=== PATIENT | female | born 1955 | race Caucasian/White ===

== ENCOUNTER 2016-06-28 13:52 | Outpatient (CLI) | payer OTHER | END 2016-06-28 13:53 | disposition home or self-care (01) | DX: Z12.31 Encounter for screening mammogram for malignant neoplasm of breast (principal); Z80.3 Family history of malignant neoplasm of breast ==

== ENCOUNTER 2016-10-13 12:41 | Outpatient (CLI) | payer OTHER | END 2016-10-13 12:42 | disposition home or self-care (01) | DX: R23.3 Spontaneous ecchymoses (principal) ==

== ENCOUNTER 2017-09-10 16:10 | Outpatient (CLI) | payer BC, OTHER ==
--- NOTE | 2017-09-11 17:36 | Mammography Report ---
DIGITAL SCREENING MAMMOGRAM: 09/10/2017 CLINICAL INDICATION: A 61-year-old with personal history of benign biopsy for screening. COMPARISON: 06/2016, 03/2015, 04/2014, 09/2013, 08/2012, 10/2011, 06/2011, 05/2010. TECHNIQUE: Routine CC and MLO projections were obtained of the breasts. FINDINGS: The breasts again demonstrate scattered fibroglandular densities bilaterally. Postbiopsy changes in the left retroareolar breast are stable. A few punctate, typically benign calcifications are present. No suspicious masses, clustered microcalcifications, or regions of architectural distortion are identified. IMPRESSION: BENIGN FINDINGS. RECOMMENDATION: Routine annual screening unless otherwise clinically indicated. BIRADS category 2 benign findings. STANDARD QUALIFYING STATEMENTS 1. This examination was reviewed with the aid of Computed-Aided Detection (CAD). 2. A negative or benign imaging report should not delay biopsy if clinically suspicious findings are present. Consider surgical consultation if warranted. More than 5% of cancers are not identified by imaging. 3. Dense breasts may obscure an underlying neoplasm. TD: 09/11/2017 17:35
== END 2017-09-10 16:11 | disposition home or self-care (01) ==
LOC: DI 16:10
PROVIDERS: ATTEND Family Medicine
DX: Z12.31 Encounter for screening mammogram for malignant neoplasm of breast (principal)
CPT/HCPCS: 77067

== ENCOUNTER 2018-08-06 14:26 | Outpatient (CLI) | payer BC, OTHER ==
--- NOTE | 2018-08-06 14:52 | XRAY Report ---
Reason: ALLERGIC ASTHMA Procedure Date: 08/06/2018 Accession Number: [id number] / [id number] Procedure: WCP - Chest 2 View X-Ray CPT Code: 00457 FULL RESULT: EXAM: CHEST RADIOGRAPHY EXAM DATE: 08/06/2018 02:42 PM. CLINICAL HISTORY: ALLERGIC ASTHMA. Cough, shortness of breath. COMPARISON: CHEST 2 VIEW PA/LAT 06/06/2017 12:23 PM. TECHNIQUE: 2 views. FINDINGS: Lungs/Pleura: No focal opacities evident. No peribronchial cuffing or interstitial abnormality. No pleural effusion. No pneumothorax. Normal volumes. Mediastinum: Heart size normal. Mildly prominent right cardiophrenic angle fat pad, as before. Other: None. IMPRESSION: Normal 2-view chest radiography. RADIA
== END 2018-08-06 14:27 | disposition home or self-care (01) ==
LOC: DI.WCP 14:26
PROVIDERS: ATTEND Family Medicine
DX: J45.909 Unspecified asthma, uncomplicated (principal)
CPT/HCPCS: 71046

== ENCOUNTER 2018-12-11 16:11 | Outpatient (CLI) | payer BC, OTHER ==
--- NOTE | 2018-12-12 08:23 | Mammography Report ---
Reason: SCREENING MAMMO Procedure Date: 12/11/2018 Accession Number: [id number] / [id number] Procedure: NIKKIE - Screening Mammo w/Jonatan CPT Code: FULL RESULT: EXAM: Screening Mammo w/Jonatan DATE: 12/11/2018 4:47 PM CLINICAL HISTORY: Screening encounter. History of early menses. History of left breast excisional biopsy with benign pathology. TECHNIQUE: (B) - Bilateral CC and MLO views were obtained. COMPARISON: 09/10/2017 through 09/24/2013. PARENCHYMAL PATTERN: (A) - The breast(s) demonstrate(s) scattered fibroglandular densities. FINDINGS: Stable postsurgical changes in the left breast. There are no suspicious masses, calcifications, or areas of distortion. IMPRESSION: Benign findings. BI-RADS category 2. RECOMMENDATION: (ANNUAL) - Recommend routine annual screening mammography. BI-RADS CATEGORY: (2) - Benign Findings. STANDARD QUALIFYING STATEMENTS: 1. This examination was not reviewed with the aid of Computer-Aided Detection (CAD). 2. A negative or benign imaging report should not preclude biopsy if clinically suspicious findings are present. 3. Dense breasts may obscure an underlying neoplasm. 4. This examination was reviewed with the aid of 3D breast imaging (tomosynthesis).
== END 2018-12-11 16:12 | disposition home or self-care (01) ==
LOC: DI 16:11
DX: Z12.31 Encounter for screening mammogram for malignant neoplasm of breast (principal)
CPT/HCPCS: 77063; 77067

== ENCOUNTER 2019-01-10 15:14 | Outpatient (CLI) | payer BC, OTHER ==
[2019-01-10 18:43] LABS: BASOPHILS # (AUTO) 0.1 10^3/uL (0.0-0.1); BASOPHILS % (AUTO) 0.9 %; EOSINOPHILS # (AUTO) 0.2 10^3/uL (0.0-0.7); EOSINOPHILS % (AUTO) 1.6 %; HGB - HEMOGLOBIN 13.2 g/dL (12.0-16.0); LYMPHOCYTES # (AUTO) 2.6 10^3/uL (1.5-3.5); LYMPHOCYTES % (AUTO) 28.5 %; MEAN CORPUSCULAR HEMOGLOBIN 30.3 pg (27.0-31.0); MEAN CORPUSCULAR VOLUME 94.9 fL (81.0-99.0); MEAN PLATELET VOLUME 11.4 fL (7.9-10.8); MONOCYTES % (AUTO) 10.9 %; NEUTROPHILS # (AUTO) 5.3 10^3/uL (1.5-6.6); NEUTROPHILS % (AUTO) 57.7 %; PLT - PLATELET COUNT 348 10^3/uL (130-450); RED BLOOD COUNT 4.35 10^6/uL (4.20-5.40); RED CELL DISTRIBUTION WIDTH 12.8 % (12.0-15.0); WHITE BLOOD COUNT 9.2 x10^3/uL (4.8-10.8)
[2019-01-10 19:12] LABS: HB2 TOTAL 13.9 g/dL; HEMOGLOBIN A1C 0.53 g/dL; HEMOGLOBIN A1C % 5.6 % (4.6-6.2)
[2019-01-10 19:19] LABS: ALBUMIN/GLOBULIN RATIO 1.2 (1.0-2.2); ALKALINE PHOSPHATASE 65 IU/L (42-121); ALT ALANINE AMINOTRANSFERASE 15 IU/L (10-60); AST ASPARTATE AMINOTRANSFERASE 17 IU/L (10-42); BILIRUBIN,TOTAL 0.8 mg/dL (0.2-1.0); BUN - BLOOD UREA NITROGEN 14 mg/dL (6-20); CALCIUM 9.8 mg/dL (8.5-10.3); CARBON DIOXIDE - CO2 27 mmol/L (21-32); CHLORIDE 105 mmol/L (101-111); CHOL/HDL RATIO 3.6 (<4.4); CHOLESTEROL 207 mg/dL; CREATININE 0.9 mg/dL (0.4-1.0); GFR - MDRD 64 (>89); GLUCOSE 91 mg/dL (70-100); HDL CHOLESTEROL 58 mg/dL; LDL CHOLESTEROL,CALCULATED 132 mg/dL; LDL/HDL RATIO 2.3 (<4.4); SODIUM 140 mmol/L (135-145); TOTAL PROTEIN 7.3 g/dL (6.7-8.2); VLDL CHOLESTEROL 17 mg/dL
== END 2019-01-10 23:59 | disposition home or self-care (01) ==
LOC: LAB.WCP 15:14
PROVIDERS: ATTEND Family Medicine
DX: Z00.00 Encounter for general adult medical examination without abnormal findings (principal); R03.0 Elevated blood-pressure reading, without diagnosis of hypertension; E78.5 Hyperlipidemia, unspecified
CPT/HCPCS: 36415; 80053; 80061; 83036; 83721; 84443; 85025

== ENCOUNTER 2019-01-29 11:06 | Outpatient (CLI) | payer BC, OTHER ==
--- NOTE | 2019-01-31 01:07 | XRAY Report ---
Reason: LEFT HEEL PAIN Procedure Date: 01/29/2019 Accession Number: [id number] / [id number] Procedure: WCP - Foot 2 View LT CPT Code: FULL RESULT: EXAM: LEFT FOOT RADIOGRAPHY EXAM DATE: 01/29/2019 11:06 AM. CLINICAL HISTORY: LEFT HEEL PAIN. COMPARISON: None. TECHNIQUE: 2 views. FINDINGS: Bones: Small plantar calcaneal spur. No evidence of fracture. Joints: Normal. No subluxations. Soft Tissues: Normal. No soft tissue swelling. IMPRESSION: Small plantar calcaneal spur. RADIA
== END 2019-01-29 23:59 | disposition home or self-care (01) ==
LOC: DI.WCP 11:06
PROVIDERS: ATTEND Family Medicine
DX: M77.32 Calcaneal spur, left foot (principal)

== ENCOUNTER 2019-05-04 10:07 | Emergency (ER) | payer BC, OTHER ==
--- NOTE | 2019-05-04 11:18 | ED Physician Documentation ---
PD HPI OPHTHO - Stated complaint Stated Complaint: LT EYE FOREIGN BODY - Chief complaint Chief Complaint: Heent - History obtained from History obtained from: Patient - History of Present Illness Timing - onset: Yesterday Timing - duration: Hours Timing - details: Abrupt onset Location: Left Associated symptoms: FB sensation. No: Redness Contributing factors: Wears contacts Recently seen: Not recently seen - Additional information Additional information: This is a 63-year-old woman who was taking her contact out of her left eye last night when it tore. She thinks the other piece is still in there and try to remove it at home but could not get it out she stood in the shower and let the water run in the eye. It still irritated today and has a foreign body sensation so she presents to get it removed. Review of Systems Eyes: reports: Irritation, Other (Foreign body sensation in the left eye). denies: Loss of vision PD PAST MEDICAL HISTORY - Present Medications Home Medications: Ambulatory Orders Medication Instructions Recorded Confirmed Erythromycin Base [Erythromycin 3.5 gm OP BID #1 tube 05/04/19 Ophthalmic Ointment] - Allergies Allergies/Adverse Reactions: Allergies Allergy/AdvReac Type Severity Reaction Status Date / Time No Known Drug Allergies Allergy Verified 05/04/19 10:45 PD ED PE NORMAL - Vitals Vital signs reviewed: Yes - General General: Alert and oriented X 3, No acute distress, Well developed/nourished - HEENT HEENT: Atraumatic, PERRL, EOMI, Other (Left eye was numbed with tetracaine. Evaluation did not reveal any obvious foreign body. The upper lid was everted and a cotton tipped applicator moistened was used to sweep underneath into the fornix without retrieval of any foreign body. The eye was irrigated with saline underneath the upper lid. The put the patient on an ophthalmic ointment just to soothe it and have her follow-up if not improving. I suspect this got flushed out in the shower and she was unaware that it came out. There was no corneal abrasion on fluorescein staining.) Results - Vitals Vitals: Vital Signs - 24 hr 05/04/19 05/04/19 10:43 12:26 Temperature 36.8 C Heart Rate 94 84 Respiratory 16 16 Rate Blood Pressure 139/70 H 132/75 H O2 Saturation 98 99 Oxygen O2 Source Room air PD MEDICAL DECISION MAKING - ED course Complexity details: d/w patient, d/w family ED course: No foreign body was identified. She may wash it out in the shower and not realized it. Her was looking with me and he did not see anything either. We did irrigate underneath the upper eyelid and the patient will be placed on erythromycin ophthalmic ointment just to soothe the eye. Departure - Departure Disposition: 01 Home, Self Care Clinical Impression: Sensation of foreign body in eye Condition: Good Instructions: ED Eye Particle Conjunctiva FB Rslv Follow-Up: Irene Bullard DO [Primary Care Provider] - Prescriptions: Erythromycin Base [Erythromycin Ophthalmic Ointment] 3.5 gm OP BID #1 tube Comments: Use the erythromycin ophthalmic ointment twice a day for the next 2 to 3 days just to help soothe the eye. Would not use another contact until you feel like the eye is 100% improved. Follow-up if you continue to feel like there is a foreign body in the eye. Discharge Date/Time: 05/04/19 12:27
[2019-05-04 12:28] VITALS: BP 132/75
== END 2019-05-04 12:27 | disposition home or self-care (01) ==
LOC: ED 10:07
DX: H57.89 Other specified disorders of eye and adnexa (principal)
CPT/HCPCS: 99282; 99283

== ENCOUNTER 2019-06-26 08:46 | Outpatient (CLI) | payer OTHER | END 2019-06-26 23:59 | disposition home or self-care (01) | LOC: LAB.R 08:46 | PROVIDERS: ATTEND Family Medicine | DX: R31.9 Hematuria, unspecified (principal) | CPT/HCPCS: 87086 ==

== ENCOUNTER 2019-07-02 16:13 | Outpatient (CLI) | payer OTHER ==
--- NOTE | 2019-07-03 10:03 | Ultrasound Report ---
Reason: POSTMENOPAUSAL BLEEDING Procedure Date: 07/02/2019 Accession Number: [id number] / [id number] Procedure: US - Pelvic w/Transvaginal CPT Code: Final Report FULL RESULT: EXAM: PELVIC ULTRASOUND EXAM DATE: 07/02/2019 05:23 PM. CLINICAL HISTORY: Postmenopausal bleeding. COMPARISON: [facility] 12/15/2013 3:10 PM. TECHNIQUE: Realtime transabdominal pelvic scan performed to identify the uterus and adnexa and as an overview of other pelvic structures, followed by transvaginal scan to provide greater detail of the uterus and adnexa, with static image documentation. FINDINGS: Uterus: 7.9 x 3.3 x 4.7 cm, volume 63.7 cc. Anteverted position. Normal overall size and echotexture. Masses: 1.5 x 2.1 x 2.3 cm anterior uterine subserosal fibroid. Previously measuring 1.2 x 0.9 x 0.8 cm. Endometrium: 6 mm. No abnormal flow, endometrial mass or focal thickening. Cervix: Lobular fluid collection in the endocervix measuring 1.8 x 1 x 2 cm. This collection contains debris. No hypervascular components or definite solid mass. Right Ovary: 1.4 x 1.3 x 1.1 cm, volume 1.1 cc. Normal echotexture and blood flow. Left Ovary: 1.4 x 0.8 x 1.2 cm, volume 0.7 cc. Normal echotexture and blood flow. Free Fluid: None. Other: None. IMPRESSION: 1. Complex debris-containing avascular fluid in the endocervix. No definite vascular soft tissue mass. If symptoms persist, recommend direct visualization with pelvic exam/Pap smear. 2. 2 cm anterior uterine subserosal fibroid. Previously measuring 1.2 cm. 3. Endometrium measures up to 6 mm. No focal mass or polyp. RADIA
== END 2019-07-02 16:14 | disposition home or self-care (01) ==
LOC: DI 16:13
PROVIDERS: ATTEND Family Medicine
DX: D25.2 Subserosal leiomyoma of uterus (principal)
CPT/HCPCS: 76830; 76856

== ENCOUNTER 2020-01-02 08:00 | Outpatient (CLI) | payer OTHER ==
[2020-01-02 18:08] LABS: BASOPHILS # (AUTO) 0.1 10^3/uL (0.0-0.1); BASOPHILS % (AUTO) 0.7 %; EOSINOPHILS # (AUTO) 0.1 10^3/uL (0.0-0.7); EOSINOPHILS % (AUTO) 1.2 %; HGB - HEMOGLOBIN 12.8 g/dL (12.0-16.0); LYMPHOCYTES # (AUTO) 2.1 10^3/uL (1.5-3.5); LYMPHOCYTES % (AUTO) 24.8 %; MEAN CORPUSCULAR HEMOGLOBIN 29.9 pg (27.0-31.0); MEAN CORPUSCULAR VOLUME 96.5 fL (81.0-99.0); MEAN PLATELET VOLUME 11.6 fL (7.9-10.8); MONOCYTES # (AUTO) 0.8 10^3/uL (0.0-1.0); NEUTROPHILS # (AUTO) 5.2 10^3/uL (1.5-6.6); NEUTROPHILS % (AUTO) 62.8 %; PLT - PLATELET COUNT 324 10^3/uL (130-450); RED BLOOD COUNT 4.28 10^6/uL (4.20-5.40); RED CELL DISTRIBUTION WIDTH 12.8 % (12.0-15.0); WHITE BLOOD COUNT 8.3 x10^3/uL (4.8-10.8)
[2020-01-02 19:37] LABS: ALBUMIN 4.3 g/dL (3.2-5.5); ALBUMIN/GLOBULIN RATIO 1.6 (1.0-2.2); ALKALINE PHOSPHATASE 61 IU/L (42-121); ALT ALANINE AMINOTRANSFERASE 13 IU/L (10-60); AST ASPARTATE AMINOTRANSFERASE 17 IU/L (10-42); BILIRUBIN,TOTAL 0.7 mg/dL (0.2-1.0); BUN - BLOOD UREA NITROGEN 15 mg/dL (6-20); CALCIUM 9.2 mg/dL (8.5-10.3); CARBON DIOXIDE - CO2 27 mmol/L (21-32); CHLORIDE 105 mmol/L (101-111); CHOL/HDL RATIO 4.4 (<4.4); CHOLESTEROL 221 mg/dL; CREATININE 0.8 mg/dL (0.4-1.0); GLUCOSE 86 mg/dL (70-100); HDL CHOLESTEROL 50 mg/dL; LDL CHOLESTEROL,CALCULATED 152 mg/dL; SODIUM 139 mmol/L (135-145); VLDL CHOLESTEROL 19 mg/dL
== END 2020-01-02 23:59 | disposition home or self-care (01) ==
LOC: LAB.WCP 08:00
PROVIDERS: ATTEND Family Medicine
DX: Z00.00 Encounter for general adult medical examination without abnormal findings (principal); E78.5 Hyperlipidemia, unspecified
CPT/HCPCS: 36415; 80053; 80061; 83721; 84443; 85025

== ENCOUNTER 2020-02-17 08:18 | Outpatient (CLI) | payer OTHER ==
--- NOTE | 2020-02-18 12:38 | Mammography Report ---
BILATERAL DIGITAL SCREENING MAMMOGRAM 3D/2D: 02/17/2020 CLINICAL: Routine screening. Comparison is made to exams dated: 12/11/2018 mammogram, 09/10/2017 mammogram, 06/28/2016 mammogram, and 04/06/2015 mammogram - [facility]. There are scattered fibroglandular elements in both breasts. No significant masses, calcifications, or other findings are seen in either breast. There has been no significant interval change. IMPRESSION: NEGATIVE There is no mammographic evidence of malignancy. A 1 year screening mammogram is recommended. This exam was interpreted at Station ID: [id number]. NOTE: For mammograms, a report in lay terms will be sent to the patient. Approximately 15% of breast malignancies will not be visualized mammographically. In the management of a palpable breast mass, a negative mammogram must not discourage biopsy of a clinically suspicious lesion. Electronically Signed By: Reese culver/ericka:02/17/2020 10:08:31 ACR BI-RADS Category 1: Negative 3341F PARENCHYMAL PATTERN: (A) - The breast(s) demonstrate(s) scattered fibroglandular densities. BI-RADS CATEGORY: (1) - 1 RECOMMENDATION: (ANNUAL) - Recommend routine annual screening mammography. [id number] 1 year screening LATERALITY: (B)
== END 2020-02-17 08:19 | disposition home or self-care (01) ==
LOC: DI.N 08:18
DX: Z12.31 Encounter for screening mammogram for malignant neoplasm of breast (principal)
CPT/HCPCS: 77063; 77067

== ENCOUNTER 2020-12-29 08:00 | Outpatient (CLI) | payer OTHER ==
[2020-12-29 12:18] LABS: BASOPHILS # (AUTO) 0.1 10^3/uL (0.0-0.1); BASOPHILS % (AUTO) 0.8 %; EOSINOPHILS # (AUTO) 0.2 10^3/uL (0.0-0.7); EOSINOPHILS % (AUTO) 2.4 %; HCT - HEMATOCRIT 41.6 % (37.0-47.0); HGB - HEMOGLOBIN 12.9 g/dL (12.0-16.0); LYMPHOCYTES # (AUTO) 2.3 10^3/uL (1.5-3.5); LYMPHOCYTES % (AUTO) 30.3 %; MEAN CORPUSCULAR HEMOGLOBIN 29.6 pg (27.0-31.0); MEAN CORPUSCULAR VOLUME 95.4 fL (81.0-99.0); MEAN PLATELET VOLUME 11.3 fL (7.9-10.8); MONOCYTES # (AUTO) 0.9 10^3/uL (0.0-1.0); MONOCYTES % (AUTO) 11.9 %; NEUTROPHILS # (AUTO) 4.1 10^3/uL (1.5-6.6); NEUTROPHILS % (AUTO) 54.3 %; PLT - PLATELET COUNT 361 10^3/uL (130-450); RED BLOOD COUNT 4.36 10^6/uL (4.20-5.40); RED CELL DISTRIBUTION WIDTH 12.5 % (12.0-15.0); WHITE BLOOD COUNT 7.6 x10^3/uL (4.8-10.8)
[2020-12-29 12:29] LABS: ALBUMIN 3.9 g/dL (3.2-5.5); ALBUMIN/GLOBULIN RATIO 1.2 (1.0-2.2); ALKALINE PHOSPHATASE 64 IU/L (42-121); ALT ALANINE AMINOTRANSFERASE 15 IU/L (10-60); AST ASPARTATE AMINOTRANSFERASE 16 IU/L (10-42); BILIRUBIN,TOTAL 0.4 mg/dL (0.2-1.0); BUN - BLOOD UREA NITROGEN 16 mg/dL (6-20); CALCIUM 9.4 mg/dL (8.5-10.3); CARBON DIOXIDE - CO2 29 mmol/L (21-32); CHLORIDE 104 mmol/L (101-111); CHOL/HDL RATIO 3.7 (<4.4); CHOLESTEROL 197 mg/dL; CREATININE 0.8 mg/dL (0.4-1.0); GFR - MDRD 72 (>89); GLUCOSE 97 mg/dL (70-100); HDL CHOLESTEROL 53 mg/dL; LDL CHOLESTEROL,CALCULATED 126 mg/dL; LDL/HDL RATIO 2.4 (<4.4); POTASSIUM 4.4 mmol/L (3.5-5.0); SODIUM 141 mmol/L (135-145); TOTAL PROTEIN 7.2 g/dL (6.7-8.2); TRIGLYCERIDES 89 mg/dL; VLDL CHOLESTEROL 18 mg/dL
[2020-12-29 12:46] LABS: THYROID STIMULATING HORMONE 1.84 uIU/mL (0.34-5.60)
== END 2020-12-29 23:59 | disposition home or self-care (01) ==
LOC: LAB.WCP 08:00
PROVIDERS: ATTEND Family Medicine
DX: Z00.00 Encounter for general adult medical examination without abnormal findings (principal); E78.5 Hyperlipidemia, unspecified
CPT/HCPCS: 36415; 80053; 80061; 83721; 84443; 85025

== ENCOUNTER 2021-03-22 07:35 | Day surgery (SDC) | payer OTHER ==
[2021-03-22] MEDS ORDERED: LACTATED RINGERS 1,000 ML IV ONE (08:10)
--- NOTE | 2021-03-22 08:34 | ANESTHESIA ---
Pre-Anesthesia VS, & Labs - Diagnosis screening - Procedure colonoscopy Vital Signs: Temp Pulse Resp BP Pulse Ox 36.2 C L 81 16 141/82 H 100 03/22/21 08:03 03/22/21 08:03 03/22/21 08:03 03/22/21 08:03 03/22/21 08:03 Height: 5 ft 3 in Weight (kg): 99.9 kg Body Mass Index: 38.9 BMI Classification: Obese - NPO >8 hours - Is Patient ?: No - Lab Results Lab results reviewed: Yes Home Medications and Allergies Home Medications: Ambulatory Orders Albuterol 2 puffs INH PRN 03/22/21 Aspirin [Aspirin EC] 1 tab ORAL DAILY 03/22/21 Fluticasone 44 Mcg [Flovent] 2 puffs INH BID 03/22/21 Fluticasone [Flonase] 1 spray INH DAILY 03/22/21 Loratadine [Claritin] 10 mg ORAL DAILY 03/22/21 Montelukast [Singulair] 10 mg ORAL DAILY 03/22/21 busPIRone [Buspar] 15 mg ORAL BID 03/22/21 Albuterol 2 puffs INH PRN 03/22/21 Aspirin [Aspirin EC] 1 tab ORAL DAILY 03/22/21 Fluticasone 44 Mcg [Flovent] 2 puffs INH BID 03/22/21 Fluticasone [Flonase] 1 spray INH DAILY 03/22/21 Loratadine [Claritin] 10 mg ORAL DAILY 03/22/21 Montelukast [Singulair] 10 mg ORAL DAILY 03/22/21 busPIRone [Buspar] 15 mg ORAL BID 03/22/21 Allergies/Adverse Reactions: Allergies Allergy/AdvReac Type Severity Reaction Status Date / Time pollen,mold,grasses Allergy Unknown Uncoded 05/05/19 08:53 Anes History & Medical History - Anesthetic History Anesthesia Complications: reports: No previous complications Family history of Anesthesia Complications: Denies Family history of Malignant Hyperthermia: Denies - Medical History Cardiovascular: reports: Hypertension, Arrhythmia Pulmonary: reports: Asthma Gastrointestinal: reports: None Urinary: reports: None Musculoskeletal: reports: Osteoarthritis Endocrine/Autoimmune: reports: None Skin: reports: None Smoking Status: Never smoker - Surgical History General: reports: Colonoscopy Gynecologic: reports: section Exam General: Alert, Oriented x3, Cooperative, No acute distress Dental: WNL Mouth Openin Fingerbreadth Neck Mobility: Reduced Thyromental Distance: less than 4 cm Respiratory: Lungs clear, Normal breath sounds, No respiratory distress, No accessory muscle use Cardiovascular: Regular rate, Normal S1, Normal S2, No murmurs Plan Anesthesia Type: General, Total IV Consent for Procedure(s) Verified and Reviewed: Yes Code Status: Attempt Resuscitation ASA classification: 2-Mild systemic disease Is this case an emergency?: No
[2021-03-22] MEDS ORDERED: LACTATED RINGERS 300 ML IV ONE (09:20)
[2021-03-22] MEDS ORDERED: PROPOFOL 500 MG/50 ML 500 MG/50 ML VIAL ONE (09:36)
[2021-03-22 09:41] VITALS: BP 124/67
--- NOTE | 2021-03-22 10:26 | ANESTHESIA POST OP EVALUATION ---
Anesthesia Post Eval - Post Anesthesia Eval Vitals: Last Vital Signs Temp 36.2 C L 03/22/21 09:40 Pulse 78 03/22/21 09:40 Resp 14 03/22/21 09:40 BP 124/67 03/22/21 09:40 Pulse Ox 100 03/22/21 09:40 CV Function Including HR & BP: Stable Pain Control: Satisfactory Nausea & Vomiting: Negative Mental Status: Baseline Respiratory Status: Airway Patent Hydration Status: Satisfactory Anesthesia Complications: None
== END 2021-03-22 07:36 | disposition home or self-care (01) ==
LOC: SDS 07:35
PROVIDERS: ATTEND Surgery
DX: Z12.11 Encounter for screening for malignant neoplasm of colon (principal); K57.30 Diverticulosis of large intestine without perforation or abscess without bleeding; K64.4 Residual hemorrhoidal skin tags; K64.8 Other hemorrhoids; J45.909 Unspecified asthma, uncomplicated; F41.9 Anxiety disorder, unspecified; E66.9 Obesity, unspecified; Z68.38 Body mass index [BMI] 38.0-38.9, adult
CPT/HCPCS: 45378; J7120

== ENCOUNTER 2021-07-28 15:36 | Outpatient (CLI) | payer OTHER ==
--- NOTE | 2021-08-01 07:54 | Mammography Report ---
BILATERAL DIGITAL SCREENING MAMMOGRAM 3D/2D: 07/28/2021 CLINICAL: Routine screening. Comparison is made to exams dated: 02/17/2020 mammogram, 12/11/2018 mammogram, 09/10/2017 mammogram, 06/28/2016 mammogram, 04/06/2015 mammogram, and 05/18/2014 ultrasound - [facility]. Th ere are scattered fibroglandular elements in both breasts. No significant masses, calcifications, or other findings are seen in either breast. There has been no significant interval change. IMPRESSION: NEGATIVE There is no mammographic evidence of malignancy. A 1 year screening mammogram is recommended. This exam was interpreted at Station ID: [id number]. NOTE: For mammograms, a report in lay terms will be sent to the patient. Approximately 15% of breast malignancies will not be visualized mammographically. In the management of a palpable breast mass, a negative mammogram must not discourage biopsy of a clinically suspicious lesion. Electronically Signed By: Justyn Cody M.D., jr/ericka:07/29/2021 08:40:18 ACR BI-RADS Category 1: Negative 3341F PARENCHYMAL PATTERN: (A) - The breast(s) demonstrate(s) scattered fibroglandular densities. BI-RADS CATEGORY: (1) - 1 RECOMMENDATION: (ANNUAL) - Recommend routine annual screening mammography. [id number] 1 year screening LATERALITY: (B)
== END 2021-07-28 15:37 | disposition home or self-care (01) ==
LOC: DI.N 15:36
DX: Z12.31 Encounter for screening mammogram for malignant neoplasm of breast (principal)

== ENCOUNTER 2022-06-02 20:33 | Outpatient (CLI) | payer OTHER | END 2022-06-02 20:34 | disposition home or self-care (01) | LOC: SC 20:33 | PROVIDERS: ATTEND Nurse Practitioner Family | DX: G47.33 Obstructive sleep apnea (adult) (pediatric) (principal) | CPT/HCPCS: 95810 ==

== ENCOUNTER 2022-06-28 10:49 | Outpatient (CLI) | payer OTHER ==
[2022-06-28 11:20] VITALS: BP 124/72
--- NOTE | 2022-06-28 11:20 | SLEEP CARE CONSULTATION ---
Information from patient questionnaire entered by Donna Juárez. I have reviewed and concur with the information entered by Donna Juárez. This document represents the service I personally performed and the decisions made by me, Elena Macias ARNP. History of Present Illness Service Date and Time: 06/28/2022 1049 Initial [place] Sleepiness Scale score: 6 (04/12/2022) Current [place] Sleepiness Scale score: 2 (06/28/22) Additional HPI information: [facility] ROSS returns for follow up and results of the recently performed polysomnography. I explained the pathophysiology behind obstructive sleep apnea. We then spent quite a bit of time discussing different treatment options. For mild obstructive sleep apnea, surgery and oral appliance are alternatives to nasal CPAP therapy but in moderate or severe cases, nasal CPAP is the most effective and reliable treatment. Because apnea is primarily in supine position, then positional management therapy could be effective in reducing apnea. Methods discussed such as positioning with pillows to prevent supine sleep. I reviewed the impact of weight changes on sleep apnea and strongly recommended losing weight. After some discussion, the patient opted to go with the nasal CPAP therapy. Nasal autoCPAP set at 4-15 cmH20 will be ordered with rationale explained. A manual titration study will be ordered if unable to find optimal pressure with office adjustments. I explained how CPAP machine works and what to expect when using the machine. Using CPAP every night in order to get used to it was emphasized. Patient advised to put CPAP mask on before getting into bed so as not to fall asleep without CPAP. To assist acclimation to CPAP use, it could also be used for a short time during day while reading or watching TV. The patient was instructed to call the CPAP supplier to discuss any mechanical problem that may occur. If the mask given is uncomfortable or is difficult to keep on through the night even with adjustment, contact the CPAP supplier as many will replace with another mask style if notified before 30 days. If snoring or perceives is not getting enough air or too much air from the machine, notify this office. Patient counseled not drink alcohol less than 4 hours before bedtime as it can increase snoring and apnea. Patient was cautioned about risks of drowsy driving until sleepiness symptoms resolve. Sleep Study - Results Type of Sleep Study: Polysomnography (COMPLETED 06/02/22) Prior sleep studies: No Polysomnography/Home Sleep Study results: IMPRESSION: The quality of the study is good. The patient had normal sleep efficiency. The sleep architecture was relatively normal. Respiratory monitoring showed moderate obstructive sleep apnea-hypopnea (AHI = 21.4) associated with oxyhemoglobin desaturation and mild hypoxia (jon oxygen saturation of 84%) but not sleep fragmentation. The respiratory events occurred most frequently during supine sleep (supine AHI = 107.5; nonsupine = 19.88). Snore was moderate to loud in intensity. There was no significant periodic leg movement of sleep. Cardiac rhythm was normal sinus rhythm without significant arrhythmia. No abnormal behavior (parasomnia) observed during the night. Allergies and Home Medications Drug allergies reviewed: Yes (as listed in EMR) Home medication list reviewed: Yes (no changes) Review of Systems Review of systems same as previous: Yes (no changes) Physical Exam Vital signs obtained and entered by: DONNA Aguilera MA Blood Pressure: 124/72 (LEFT ARM) Cuff size: regular Heart Rate: 78 O2 Saturation: 99 Height: 5 ft 3.5 in Weight: 230 lb 3.2 oz Body Mass Index: 40.1 BMI Classification: Morbidly Obese Impression and Plan 1. Obstructive Sleep Apnea-Hypopnea Syndrome, moderate, with lowest oxygen saturation of 84%. Obviously this is the cause of the patients symptoms of unrefreshed sleep, and excessive daytime sleepiness. Positive pressure therapy could benefit anxiety and asthma. She voiced understanding and would like to try the CPAP therapy. As mentioned above, the patient will be started on nasal autoCPAP therapy with pressure set at 4-15 cmH2O. Compliance guidelines also reviewed. A copy of compliance guidelines will be given for reference at check out. Because the apnea is more severe supine, I instructed to avoid sleeping supine using pillow positioning until able to start CPAP use. * Nasal auto CPAP therapy, pressure at 4-15 cm H2O. * Attempt to lose weight. * Avoid alcohol consumption near bedtime. * Avoid supine sleep until using CPAP. * The patient is again cautioned about driving until sleepiness completely resolves. * Return one month after CPAP obtained. I will assess response to therapy and compliance at that time. Counseling Topics: Sleeping position, Weight loss health impact Visit Type: In Office Time Spent with Patient (minutes): 22 Provider Statement: I spent 100% of the Face to Face Visit with the patient with greater than 50% spent counseling the patient and coordination of care.
== END 2022-06-28 10:50 | disposition home or self-care (01) ==
LOC: SC 10:49
PROVIDERS: ATTEND Nurse Practitioner Family
DX: G47.33 Obstructive sleep apnea (adult) (pediatric) (principal); E66.01 Morbid (severe) obesity due to excess calories; Z68.41 Body mass index [BMI] 40.0-44.9, adult
CPT/HCPCS: 99212; 99213

== ENCOUNTER 2022-09-21 15:17 | Outpatient (CLI) | payer OTHER ==
--- NOTE | 2022-09-21 16:22 | SLEEP CARE CONSULTATION ---
Information from patient questionnaire entered by Tabitha Juárez. I have reviewed and concur with the information entered by Tabitha Juárez. This document represents the service I personally performed and the decisions made by , Elena Macias ARNP. History of Present Illness Service Date and Time: 09/21/2022 1517 Previous diagnosis: Moderate, Obstructive Sleep Apnea-Hypopnea Syndrome AHI: 21.4 (in 2021) Reason for follow up: first compliance (SET UP 07/26/22) Equipment type: CPAP (RESMED Airsense 10, s/u 06/2022; NEED MACHINE) Equipment obtained from: [employer] (got initial supplies) Mask style: Full face Mask brand: Resmed (AirFit F10) Backup mask available: No (will keep old mask when replaced) Last cushion change: 1 month Prior sleep studies: No Type of Sleep Study: Polysomnography (COMPLETED 06/02/22) HPI additional information: [facility] ROSS was diagnosed to have moderate, AHI 21.4, obstructive sleep apnea- hypopnea syndrome and returned today for CPAP therapy first compliance follow- up. Sleep Study - Results Type of Sleep Study: Polysomnography (COMPLETED 06/02/22) Prior sleep studies: No CPAP Compliance Data - Data Reviewed with Patient Average duration of nightly device use: 6 hours 21 minutes Compliance rate %: 98 (63/64 days used) Current pressure setting (cmH2O): 4-15 (median 13.0, avg 14.9, max 15.0) Average residual AHI: 7.8 Central apnea: 0.2 Obstructive apnea: 3.1 Hypopnea: 4.4 Average large leak: 0.8 lpm Subjective Patient concerns: reports: dry mouth, nose, throat (did have, is now improved). denies: aerophagia, mask discomfort, air blowing in eyes, mask leak noise, condensation in mask/hose, nasal congestion, epistaxis Observed to snore while using device: Yes Current pressure setting perceived as: comfortable On therapy, patient: reports: sleeping better, awakening more refreshed, being more awake and alert during the day. denies: drowsiness while driving Initial [place] Sleepiness Scale score: 6 (04/12/2022) Current [place] Sleepiness Scale score: 3 (09/21/22) Allergies and Home Medications Known drug allergies: No Drug allergies reviewed: Yes Home medication list reviewed: Yes (no changes) Allergy and home medication list: Allergies pollen,mold,grasses Allergy (Uncoded 09/20/22 16:53) Unknown Review of Systems Review of systems same as previous: Yes (no changes) Physical Exam Vital signs obtained and entered by: TABITHA Aguilera MA Blood Pressure: 130/82 (LEFT ARM) Cuff size: regular Heart Rate: 84 O2 Saturation: 98 Height: 5 ft 3.5 in Weight: 237 lb 9.6 oz Weight change since last visit: 7 lb gain Body Mass Index: 41.4 BMI Classification: Morbidly Obese Impression and Plan 1. Obstructive Sleep Apnea-Hypopnea Syndrome, moderate, with good treatment compliance and fair apnea control. On CPAP therapy, the patient has better sleep quality and is refreshed in the morning. She states it has been a journey but she is getting used to the CPAP. The patients pressure will be changed to autoCPAP 13-16 cmH20 for elevation of residual AHI. Patient advised to contact me if pressure change is uncomfortable so that it can be adjusted. Goals for apnea control discussed. Patient's apnea severity and rationale for treatment to reduce apnea, improve sleep quality and reduce cardiovascular and cerebrovascular events was reviewed. I also reviewed the benefit of consistent device use of CPAP for anxiety and asthma. 2. Obesity, unspecified. Currently patients BMI is 41.4. Obesity increases the risk of apnea, CPAP pressure requirements and overall health risks especially cardiovascular and diabetes. Thus patient is advised to lose weight. * Change auto CPAP pressure to 13-16 cmH2O * Notify me if snoring with mask or feeling that the pressure is too much or too little * Attempt to lose weight * Call this office if any problems using CPAP * Return for follow up in 1-2 months, or sooner if concerns arise Counseling Topics: Spare mask, Weight loss health impact Visit Type: In Office Time Spent with Patient (minutes): 20 Provider Statement: I spent 100% of the Face to Face Visit with the patient with greater than 50% spent counseling the patient and coordination of care.
[2022-09-21 16:30] VITALS: BP 130/82
== END 2022-09-21 15:18 | disposition home or self-care (01) ==
LOC: SC 15:17
PROVIDERS: ATTEND Nurse Practitioner Family
DX: G47.33 Obstructive sleep apnea (adult) (pediatric) (principal); E66.01 Morbid (severe) obesity due to excess calories; Z68.41 Body mass index [BMI] 40.0-44.9, adult
CPT/HCPCS: 99212; 99213

== ENCOUNTER 2022-09-29 12:32 | Outpatient (CLI) | payer OTHER ==
[2022-09-29 12:52] LABS: BASOPHILS # (AUTO) 0.1 10^3/uL (0.0-0.1); BASOPHILS % (AUTO) 0.7 %; EOSINOPHILS # (AUTO) 0.2 10^3/uL (0.0-0.7); EOSINOPHILS % (AUTO) 2.6 %; HCT - HEMATOCRIT 41.7 % (37.0-47.0); HGB - HEMOGLOBIN 13.1 g/dL (12.0-16.0); LYMPHOCYTES # (AUTO) 2.1 10^3/uL (1.5-3.5); LYMPHOCYTES % (AUTO) 26.4 %; MEAN CORPUSCULAR HEMOGLOBIN 29.4 pg (27.0-31.0); MEAN CORPUSCULAR HGB CONC 31.4 g/dL (32.0-36.0); MEAN CORPUSCULAR VOLUME 93.7 fL (81.0-99.0); MONOCYTES # (AUTO) 0.9 10^3/uL (0.0-1.0); MONOCYTES % (AUTO) 11.6 %; NEUTROPHILS # (AUTO) 4.8 10^3/uL (1.5-6.6); NEUTROPHILS % (AUTO) 58.5 %; PLT - PLATELET COUNT 359 10^3/uL (130-450); RED BLOOD COUNT 4.45 10^6/uL (4.20-5.40); WHITE BLOOD COUNT 8.1 x10^3/uL (4.8-10.8)
[2022-09-29 13:23] LABS: ALBUMIN 3.9 g/dL (3.2-5.5); ALBUMIN/GLOBULIN RATIO 1.1 (1.0-2.2); ALKALINE PHOSPHATASE 76 IU/L (42-121); ALT ALANINE AMINOTRANSFERASE 17 IU/L (10-60); AST ASPARTATE AMINOTRANSFERASE 20 IU/L (10-42); BILIRUBIN,TOTAL 0.6 mg/dL (0.2-1.0); BUN - BLOOD UREA NITROGEN 13 mg/dL (6-20); CALCIUM 9.2 mg/dL (8.5-10.3); CARBON DIOXIDE - CO2 29 mmol/L (21-32); CHLORIDE 104 mmol/L (101-111); CHOL/HDL RATIO 3.5 (<4.4); CHOLESTEROL 205 mg/dL; CREATININE 0.9 mg/dL (0.4-1.0); GFR - MDRD 63 (>89); GLUCOSE 101 mg/dL (70-100); HDL CHOLESTEROL 58 mg/dL; LDL CHOLESTEROL,CALCULATED 128 mg/dL; LDL/HDL RATIO 2.2 (<4.4); POTASSIUM 4.2 mmol/L (3.5-5.0); SODIUM 138 mmol/L (135-145); TOTAL PROTEIN 7.3 g/dL (6.7-8.2); TRIGLYCERIDES 97 mg/dL; VLDL CHOLESTEROL 19 mg/dL
[2022-09-29 13:34] LABS: THYROID STIMULATING HORMONE 1.91 uIU/mL (0.34-5.60)
== END 2022-09-29 12:33 | disposition home or self-care (01) ==
LOC: LAB 12:32
PROVIDERS: ATTEND Physician Assistant
DX: E78.5 Hyperlipidemia, unspecified (principal); R03.0 Elevated blood-pressure reading, without diagnosis of hypertension; Z13.29 Encounter for screening for other suspected endocrine disorder
CPT/HCPCS: 36415; 80053; 80061; 83721; 84443; 85025

== ENCOUNTER 2022-10-26 14:42 | Outpatient (CLI) | payer OTHER ==
--- NOTE | 2022-10-26 15:17 | Sleep Patient Instructions ---
Sleep Center Visit Summary - Patient Visit Information Reason for Visit: 2 month CPAP therapy follow up - Patient Instructions Additional Instructions: You were here for follow up of CPAP therapy. You will be continued on CPAP therapy with pressure changed to 15-18 cmH2O. Please let us know if the pressure change is uncomfortable and further adjustments will be made. You should follow up with sleep care in 3 months. You may contact us sooner for any questions or concerns. - Clinic Information Contact: [facility] [address] [place] [id number] [email or web address] T: [phone]
--- NOTE | 2022-10-26 15:21 | SLEEP CARE CONSULTATION ---
Information from patient questionnaire entered by Tabitha Juárez. I have reviewed and concur with the information entered by Tabitha Juárez. This document represents the service I personally performed and the decisions made by , Elena Macias ARNP. History of Present Illness Service Date and Time: 10/26/2022 1442 Previous diagnosis: Moderate, Obstructive Sleep Apnea-Hypopnea Syndrome AHI: 21.4 (in 2021) Reason for follow up: other (1-2 MONTH F/U) Equipment type: CPAP (RESMED Airsense 10, s/u 06/2022; NEED MACHINE) Equipment obtained from: [employer] (needs to contact for supplies) Mask style: Full face Backup mask available: Yes (old mask) Prior sleep studies: No Type of Sleep Study: Polysomnography (COMPLETED 06/02/22) HPI additional information: CUCA ROSS was diagnosed to have moderate, AHI 21.4, obstructive sleep apnea- hypopnea syndrome and returned today for CPAP therapy one-two month follow-up. Sleep Study - Results Type of Sleep Study: Polysomnography (COMPLETED 06/02/22) Prior sleep studies: No CPAP Compliance Data - Data Reviewed with Patient Average duration of nightly device use: 6 hours 8 minutes Compliance rate %: 93 (57/60 days used) Current pressure setting (cmH2O): 13-16 (95th 15.5, max 15.6) Average residual AHI: 7.6 Central apnea: 0.2 Obstructive apnea: 2.8 Hypopnea: 4.5 Average large leak: 0.4 lpm Subjective Missed days of use due to: reports: other (power outage) Patient concerns: denies: aerophagia, mask discomfort, air blowing in eyes, mask leak noise, condensation in mask/hose, nasal congestion, dry mouth, nose, throat, epistaxis Observed to snore while using device: No Current pressure setting perceived as: comfortable On therapy, patient: reports: sleeping better, being more awake and alert during the day. denies: drowsiness while driving Initial [place] Sleepiness Scale score: 6 (04/12/2022) Current [place] Sleepiness Scale score: 4 (10/26/22) Allergies and Home Medications Known drug allergies: No Drug allergies reviewed: Yes Home medication list reviewed: Yes (no changes) Allergy and home medication list: Allergies pollen,mold,grasses Allergy (Uncoded 10/25/22 13:52) Unknown Review of Systems Review of systems same as previous: Yes (no changes) Physical Exam Vital signs obtained and entered by: TABITHA Aguilera MA Blood Pressure: 118/70 (LEFT ARM) Cuff size: long Heart Rate: 88 O2 Saturation: 99 Height: 5 ft 3.5 in Weight: 238 lb 12.8 oz Body Mass Index: 41.6 BMI Classification: Morbidly Obese Impression and Plan 1. Obstructive Sleep Apnea-Hypopnea Syndrome, moderate, with good treatment compliance and fair apnea control with elevated residual AHI. Patient state she really has not noticed a big difference in sleep quality but does feel rested in the morning. Her residual AHI is elevated today. The patients pressure will be changed to autoCPAP 15-18 cmH20 for elevation of residual AHI. Patient advised to contact me if pressure change is uncomfortable so that it can be adjusted. Goals for apnea control discussed. Patient's apnea severity and rationale for treatment to reduce apnea, improve sleep quality and reduce cardiovascular and cerebrovascular events was reviewed. I also reviewed the benefit of consistent device use of CPAP for anxiety and asthma. 2. Obesity, unspecified. Currently patients BMI is 41.6. Obesity increases the risk of apnea, CPAP pressure requirements and overall health risks especially cardiovascular and diabetes. Thus patient is advised to lose weight. * Change auto CPAP pressure to 15-18 cmH2O * Notify me if snoring with mask or feeling that the pressure is too much or too little * Attempt to lose weight * Call this office if any problems using CPAP * Return for follow up in 3 months, or sooner if concerns arise Counseling Topics: Spare mask, Weight loss health impact Visit Type: In Office Time Spent with Patient (minutes): 21 Provider Statement: I spent 100% of the Face to Face Visit with the patient with greater than 50% spent counseling the patient and coordination of care.
[2022-10-26 15:22] VITALS: BP 118/70
== END 2022-10-26 14:43 | disposition home or self-care (01) ==
LOC: SC 14:42
PROVIDERS: ATTEND Nurse Practitioner Family
DX: G47.33 Obstructive sleep apnea (adult) (pediatric) (principal); E66.01 Morbid (severe) obesity due to excess calories; Z68.41 Body mass index [BMI] 40.0-44.9, adult
CPT/HCPCS: 99212; 99213

== ENCOUNTER 2023-01-02 10:01 | Outpatient (CLI) | payer OTHER ==
--- NOTE | 2023-01-03 09:01 | Mammography Report ---
BILATERAL DIGITAL SCREENING MAMMOGRAM 3D/2D: 01/02/2023 CLINICAL: Routine screening. Comparison is made to exams dated: 07/28/2021 mammogram, 02/17/2020 mammogram, 12/11/2018 mammogram, 08/23 mammogram, 06/28/2016 mammogram, and 04/06/2015 mammogram - [facility]. There are scattered areas of fibroglandular density in both breasts (category b / 25%-50% glandular t issue). No significant masses, calcifications, or other findings are seen in either breast. There has been no significant interval change. IMPRESSION: NEGATIVE There is no mammographic evidence of malignancy. A 1 year screening mammogram is recommended. Based on the Tyrer Cuzick model (a risk assessment model) the patients lifetime risk is 11.4% and he r 10 year risk is 5.5%. According to the ACR, ACS, and NCCN guidelines, an annual breast MRI exam cr ng with mammogram is recommended if the patients lifetime risk is 20% or greater. This exam was interpreted at Station ID: [id number]. NOTE: For mammograms, a report in lay terms will be sent to the patient. Approximately 15% of breast malignancies will not be visualized mammographically. In the management of a palpable breast mass, a negative mammogram must not discourage biopsy of a clinically suspicious lesion. Electronically Signed By: Chidi jesus/[email or web address]:01/02/2023 18:35:15 letter sent: No_Letter ACR BI-RADS Category 1: Negative 3341F PARENCHYMAL PATTERN: (A) - The breast(s) demonstrate(s) scattered fibroglandular densities. BI-RADS CATEGORY: (1) - 1 Mammogram [id number] 1 year screening LATERALITY: (B)
== END 2023-01-02 10:02 | disposition home or self-care (01) ==
LOC: DI.N 10:01
DX: Z12.31 Encounter for screening mammogram for malignant neoplasm of breast (principal)

== ENCOUNTER 2023-01-26 11:04 | Outpatient (CLI) | payer OTHER ==
--- NOTE | 2023-01-26 11:38 | Sleep Patient Instructions ---
Sleep Center Visit Summary - Patient Visit Information Reason for Visit: Three month follow up for PAP therapy - Patient Instructions Additional Instructions: You were here for follow up of CPAP therapy. You will be continued on CPAP therapy with pressure at 15-18 cmH2O. Please let us know if the pressure change is uncomfortable and we can make further adjustments of the pressure. You should follow up with sleep care in 6 months. You may contact us sooner for any questions or concerns. - Clinic Information Contact: [facility] [address] [place] [id number] [email or web address] T: [phone]
--- NOTE | 2023-01-26 11:50 | SLEEP CARE CONSULTATION ---
Information from patient questionnaire entered by Tabitha Juárez. I have reviewed and concur with the information entered by Tabitha Juárez. This document represents the service I personally performed and the decisions made by me, Elena Macias ARNP. History of Present Illness Service Date and Time: 01/26/2023 1104 Previous diagnosis: Moderate, Obstructive Sleep Apnea-Hypopnea Syndrome AHI: 21.4 Reason for follow up: three month (F/U ) Equipment type: CPAP (RESMED 10, s/u 06/2022; SD CARD NEEDED) Equipment obtained from: [employer] (getting supplies) Mask style: Full face Backup mask available: Yes (other mask) Last cushion change: has not changed out Prior sleep studies: No Type of Sleep Study: Polysomnography (COMPLETED 06/02/22) HPI additional information: CUCA ROSS was diagnosed to have moderate, AHI 21.4, obstructive sleep apnea- hypopnea syndrome and returned today for CPAP therapy three month follow-up. Sleep Study - Results Type of Sleep Study: Polysomnography (COMPLETED 06/02/22) Prior sleep studies: No CPAP Compliance Data - Data Reviewed with Patient Average duration of nightly device use: 6 hours 5 minutes Compliance rate %: 94 (87/90 days used) Current pressure setting (cmH2O): 13-16 (avg 16) Average residual AHI: 4.8 Central apnea: 0.1 Obstructive apnea: 1.5 Hypopnea: 3.1 Average large leak: 0.6 L/min Subjective Missed days of use due to: reports: travel (no plug in) Patient concerns: reports: dry mouth, nose, throat (sometimes). denies: aerophagia, mask discomfort, air blowing in eyes, mask leak noise, condensation in mask/hose, nasal congestion, epistaxis Observed to snore while using device: No Current pressure setting perceived as: too low On therapy, patient: reports: sleeping better, other. denies: drowsiness while driving Initial [place] Sleepiness Scale score: 6 (04/12/2022) Current [place] Sleepiness Scale score: 4 (01/26/23) Allergies and Home Medications Known drug allergies: No Drug allergies reviewed: Yes Home medication list reviewed: Yes (no changes) Allergy and home medication list: Allergies pollen,mold,grasses Allergy (Uncoded 08/03/23 14:01) Unknown Review of Systems Review of systems same as previous: Yes (no changes) Physical Exam Vital signs obtained and entered by: TABITHA Aguilera MA Blood Pressure: 122/70 (LEFT ARM) Cuff size: regular Heart Rate: 71 O2 Saturation: 97 Height: 5 ft 3.5 in Weight: 233 lb 12.8 oz Body Mass Index: 40.7 BMI Classification: Morbidly Obese Impression and Plan 1. Obstructive Sleep Apnea-Hypopnea Syndrome, moderate, with good treatment compliance and good apnea control. On CPAP therapy, the patient has better sleep quality. She feels the pressure may be too low. I did try to increase pressure at her last visit but it looks like this was not accomplished. Her residual AHI is better at 4.8 but I still think it would be beneficial to complete adjustment to 15-18 cmH2O. She will need to bring in her machine, so we can change the settings on her device because her SD card is not allowing us to put changes on the card. She voiced understanding and will bring this back in this afternoon. Patient has significant improvement of their sleep apnea and is satisfied with current CPAP therapy. Patient has been getting occasional dry mouth but states its not troublesome. Patient denies problems with nasal congestion, epistaxis, skin irritation or aerophagia. Patient's apnea severity and rationale for treatment to reduce apnea, improve sleep quality and reduce cardiovascular and cerebrovascular events was reviewed. I also reviewed the benefit of consistent device use of CPAP for anxiety and asthma. 2. Obesity, unspecified. Currently patients BMI is 40.7. Obesity increases the risk of apnea, CPAP pressure requirements and overall health risks especially cardiovascular and diabetes. Thus patient is advised to lose weight. * Change auto CPAP pressure at 15-18 cmH2O * Notify me if snoring with mask or feeling that the pressure is too much or too little * Attempt to lose weight * Call this office if any problems using CPAP * Return for follow up in 6 months, or sooner if concerns arise Counseling Topics: Spare mask, Weight loss health impact Visit Type: In Office Time Spent with Patient (minutes): 21 Provider Statement: I spent 100% of the Face to Face Visit with the patient with greater than 50% spent counseling the patient and coordination of care.
[2023-01-26 11:51] VITALS: BP 122/70
== END 2023-01-26 11:05 | disposition home or self-care (01) ==
LOC: SC 11:04
PROVIDERS: ATTEND Nurse Practitioner Family
DX: G47.33 Obstructive sleep apnea (adult) (pediatric) (principal); Z68.41 Body mass index [BMI] 40.0-44.9, adult; E66.01 Morbid (severe) obesity due to excess calories
CPT/HCPCS: 99212; 99213

== ENCOUNTER 2023-09-07 15:40 | Outpatient (CLI) | payer OTHER, MEDICARE ==
--- NOTE | 2023-09-07 16:06 | Sleep Patient Instructions ---
Sleep Center Visit Summary - Patient Visit Information Reason for Visit: 6-month follow-up - Patient Instructions Additional Instructions: You were here for follow up of CPAP therapy. You will be continued on CPAP therapy with pressure at 14-17 cmH2O. Please let us know if the pressure change is uncomfortable and we can make further adjustments of the pressure. You should follow up with sleep care in 12 months. You may contact us sooner for any questions or concerns. - Clinic Information Contact: [facility] [address] [place] [id number] [email or web address] T: [phone]
--- NOTE | 2023-09-07 16:12 | SLEEP CARE CONSULTATION ---
Information from patient questionnaire entered by Donna Juárez. I have reviewed and concur with the information entered by Donna Juárez. This document represents the service I personally performed and the decisions made by me, Elena Macias ARNP. History of Present Illness Service Date and Time: 09/07/2023 1540 Previous diagnosis: Moderate, Obstructive Sleep Apnea-Hypopnea Syndrome AHI: 21.4 Reason for follow up: six month Equipment type: CPAP (RESMED 10, s/u 06/2022; SD CARD NEEDED) Equipment obtained from: [employer] (getting supplies) Mask style: Full face Backup mask available: Yes Prior sleep studies: No Type of Sleep Study: Polysomnography (COMPLETED 06/02/22) HPI additional information: CUCA ROSS was diagnosed to have moderate, AHI 21.4, obstructive sleep apnea- hypopnea syndrome and returned today for CPAP therapy six month follow-up. Sleep Study - Results Type of Sleep Study: Polysomnography (COMPLETED 06/02/22) Prior sleep studies: No CPAP Compliance Data - Data Reviewed with Patient Average duration of nightly device use: 5 hours 57 minutes Compliance rate %: 96 (179/180 days used) Current pressure setting (cmH2O): 13-16 (avg 15.9) Average residual AHI: 5.9 Central apnea: 0.1 Obstructive apnea: 1.8 Hypopnea: 4 Average large leak: 1.3 L/min Subjective Missed days of use due to: reports: illness Patient concerns: reports: dry mouth, nose, throat (dry mouth; sometimes). denies: aerophagia, mask discomfort, air blowing in eyes, mask leak noise, condensation in mask/hose, nasal congestion, epistaxis Current pressure setting perceived as: comfortable (to too low) On therapy, patient: reports: sleeping better, awakening more refreshed, being more awake and alert during the day, more rested overall. denies: drowsiness while driving Initial [place] Sleepiness Scale score: 6 (04/12/2022) Current [place] Sleepiness Scale score: 5 (09/07/23) Allergies and Home Medications Known drug allergies: No Drug allergies reviewed: Yes Home medication list reviewed: Yes (no changes) Allergy and home medication list: Allergies pollen,mold,grasses Allergy (Uncoded 09/07/23 08:34) Unknown Review of Systems Review of systems same as previous: Yes (NO CHANGE) Physical Exam Vital signs obtained and entered by: DONNA Aguilera MA Blood Pressure: 157/91 (RIGHT ARM) Cuff size: regular Heart Rate: 84 O2 Saturation: 99 Height: 5 ft 3.5 in Weight: 233 lb 3.2 oz Body Mass Index: 40.6 BMI Classification: Morbidly Obese Impression and Plan 1. Obstructive Sleep Apnea-Hypopnea Syndrome, moderate, with good treatment compliance and fair apnea control with minimal elevation of residual AHI. On CPAP therapy, the patient has better sleep quality and is more rested overall. The patients pressure will be changed to autoCPAP 14-17 cmH20 for elevation of residual AHI. Patient advised to contact me if pressure change is uncomfortable so that it can be adjusted. Goals for apnea control discussed. She had a change in insurance and needs her DME prescription renewed. I will complete one and have it faxed to [facility]. Patient's apnea severity and rationale for treatment to reduce apnea, improve sleep quality and reduce cardiovascular and cerebrovascular events was reviewed. I also reviewed the benefit of consistent device use of CPAP for anxiety and asthma. 2. Obesity, unspecified. Currently patients BMI is 40.6. Obesity increases the risk of apnea, CPAP pressure requirements and overall health risks especially cardiovascular and diabetes. Thus patient is advised to lose weight. * Change auto CPAP pressure to 14-17 cmH2O * Update supply prescription * Notify me if snoring with mask or feeling that the pressure is too much or too little * Attempt to lose weight * Call this office if any problems using CPAP * Return for follow up in 12 months, or sooner if concerns arise Adjust device pressure to (cmH2O): 14-17 Counseling Topics: Spare mask, Weight loss health impact Prescriptions: Device supplies Follow up with Sleep Care in: 1 year Visit Type: In Office Time Spent with Patient (minutes): 20 Provider Statement: I spent 100% of the Face to Face Visit with the patient with greater than 50% spent counseling the patient and coordination of care.
[2023-09-07 16:13] VITALS: BP 157/91; O2SAT 99
== END 2023-09-07 15:41 | disposition home or self-care (01) ==
LOC: SC 15:40
PROVIDERS: ATTEND Nurse Practitioner Family
DX: G47.33 Obstructive sleep apnea (adult) (pediatric) (principal); E66.01 Morbid (severe) obesity due to excess calories; Z68.41 Body mass index [BMI] 40.0-44.9, adult
CPT/HCPCS: 99212; 99213

== ENCOUNTER 2024-01-02 11:59 | Outpatient (CLI) | payer OTHER, MEDICARE ==
[2024-01-02 12:28] LABS: BASOPHILS # (AUTO) 0.1 10^3/uL (0.0-0.1); BASOPHILS % (AUTO) 0.8 %; EOSINOPHILS # (AUTO) 0.1 10^3/uL (0.0-0.7); EOSINOPHILS % (AUTO) 1.3 %; HCT - HEMATOCRIT 40.2 % (37.0-47.0); HGB - HEMOGLOBIN 12.8 g/dL (12.0-16.0); LYMPHOCYTES # (AUTO) 2.4 10^3/uL (1.5-3.5); LYMPHOCYTES % (AUTO) 25.8 %; MEAN CORPUSCULAR HEMOGLOBIN 30.3 pg (27.0-31.0); MEAN CORPUSCULAR HGB CONC 31.8 g/dL (32.0-36.0); MEAN CORPUSCULAR VOLUME 95.3 fL (81.0-99.0); MEAN PLATELET VOLUME 10.7 fL (7.9-10.8); MONOCYTES % (AUTO) 11.2 %; NEUTROPHILS # (AUTO) 5.6 10^3/uL (1.5-6.6); NEUTROPHILS % (AUTO) 60.6 %; PLT - PLATELET COUNT 323 10^3/uL (130-450); RED BLOOD COUNT 4.22 10^6/uL (4.20-5.40); RED CELL DISTRIBUTION WIDTH 12.9 % (12.0-15.0); WHITE BLOOD COUNT 9.3 x10^3/uL (4.8-10.8)
[2024-01-02 12:42] LABS: ALBUMIN 4.2 g/dL (3.2-5.5); ALBUMIN/GLOBULIN RATIO 1.4 (1.0-2.2); ALKALINE PHOSPHATASE 72 IU/L (42-121); ALT ALANINE AMINOTRANSFERASE 10 IU/L (10-60); AST ASPARTATE AMINOTRANSFERASE 13 IU/L (10-42); BILIRUBIN,TOTAL 0.6 mg/dL (0.2-1.0); BUN - BLOOD UREA NITROGEN 13 mg/dL (6-20); CALCIUM 9.8 mg/dL (8.5-10.3); CARBON DIOXIDE - CO2 31 mmol/L (21-32); CHLORIDE 104 mmol/L (101-111); CHOL/HDL RATIO 3.6 (<4.4); CHOLESTEROL 190 mg/dL; CREATININE 0.8 mg/dL (0.6-1.3); GFR - MDRD 72 (>89); GLUCOSE 96 mg/dL (74-104); HDL CHOLESTEROL 53 mg/dL; LDL CHOLESTEROL,CALCULATED 108 mg/dL; POTASSIUM 4.3 mmol/L (3.5-4.5); SODIUM 139 mmol/L (135-145); TOTAL PROTEIN 7.3 g/dL (6.4-8.9); TRIGLYCERIDES 144 mg/dL; VLDL CHOLESTEROL 29 mg/dL
[2024-01-02 12:58] LABS: THYROID STIMULATING HORMONE 1.52 uIU/mL (0.34-5.60)
== END 2024-01-02 12:00 | disposition home or self-care (01) ==
LOC: LAB 11:59
PROVIDERS: ATTEND Physician Assistant
DX: E78.5 Hyperlipidemia, unspecified (principal); R03.0 Elevated blood-pressure reading, without diagnosis of hypertension
CPT/HCPCS: 36415; 80053; 80061; 83721; 84443; 85025

== ENCOUNTER 2024-01-16 14:54 | Outpatient (CLI) | payer OTHER, MEDICARE ==
--- NOTE | 2024-01-18 09:24 | Mammography Report ---
BILATERAL DIGITAL SCREENING MAMMOGRAM 3D/2D: 01/16/2024 CLINICAL: Routine screening. Comparison is made to exams dated: 01/02/2023 mammogram, 07/28/2021 mammogram, 02/17/2020 mammogram, 11/23 mammogram, 09/10/2017 mammogram, and 06/28/2016 mammogram - [facility]. There are scattered areas of fibroglandular density in both breasts (category b / 25%-50% glandular t issue). No significant masses, calcifications, or other findings are seen in either breast. There has been no significant interval change. IMPRESSION: NEGATIVE There is no mammographic evidence of malignancy. A 1 year screening mammogram is recommended. Based on the Tyrer Cuzick model (a risk assessment model) the patient's lifetime risk is 10.9% and he r 10 year risk is 5.5%. According to the ACR, ACS, and NCCN guidelines, an annual breast MRI exam cr ng with mammogram is recommended if the patient's lifetime risk is 20% or greater. This exam was interpreted at Station ID: [id number]. NOTE: For mammograms, a report in lay terms will be sent to the patient. Approximately 15% of breast malignancies will not be visualized mammographically. In the management of a palpable breast mass, a negative mammogram must not discourage biopsy of a clinically suspicious lesion. Electronically Signed By: Elena Thakkar M.D., Ph.D. gia/ericka:01/18/2024 08:34:31 letter sent: No_Letter ACR BI-RADS Category 1: Negative 3341F PARENCHYMAL PATTERN: (A) - The breast(s) demonstrate(s) scattered fibroglandular densities. BI-RADS CATEGORY: (1) - 1 RECOMMENDATION: (ANNUAL) - Recommend routine annual screening mammography. [id number] 1 year screening LATERALITY: (B)
== END 2024-01-16 14:55 | disposition home or self-care (01) ==
LOC: DI 14:54
DX: Z12.31 Encounter for screening mammogram for malignant neoplasm of breast (principal); R92.323 Mammographic fibroglandular density, bilateral breasts